=== PATIENT | female | born 1940 | race Caucasian/White ===

== ENCOUNTER → 2023-09-05 10:19 | Outpatient (REF) | payer MEDICARE, BC, SELFPAY | LOC: DHCBS MAIN 10:19 | PROVIDERS: ATTENDING PHYSICIAN Internal Medicine Interventional Cardiology; FAMILY PHYSICIAN Family Medicine | DX: I35.0 Nonrheumatic aortic (valve) stenosis (principal) | CPT/HCPCS: 93306 ==

== ENCOUNTER → 2024-05-24 14:06 | Outpatient (REF) | payer MEDICARE, BC, SELFPAY | LOC: RAD 14:06 | PROVIDERS: ATTENDING PHYSICIAN Surgery Vascular Surgery; FAMILY PHYSICIAN Family Medicine | DX: I73.9 Peripheral vascular disease, unspecified (principal) | CPT/HCPCS: 93922; 93925 ==

== ENCOUNTER → 2024-08-29 15:08 | Outpatient (REF) | payer MEDICARE, BC, SELFPAY | LOC: HWRCS 15:08 | PROVIDERS: ATTENDING PHYSICIAN Internal Medicine Interventional Cardiology; FAMILY PHYSICIAN Family Medicine | DX: I35.0 Nonrheumatic aortic (valve) stenosis (principal) | CPT/HCPCS: 93306 ==

== ENCOUNTER → 2025-06-03 12:54 | Outpatient (REF) | payer MEDICARE, BC, SELFPAY | LOC: RAD 12:54 | PROVIDERS: ATTENDING PHYSICIAN Physician Assistant; FAMILY PHYSICIAN Family Medicine; OTHER PHYSICIAN Surgery Vascular Surgery | DX: I73.9 Peripheral vascular disease, unspecified (principal) | CPT/HCPCS: 93922 ==